=== PATIENT | female | born 1990 | race Two or more races ===

== ENCOUNTER 2020-02-23 23:06 | Emergency (ER) | payer MEDICAID, OTHER ==
[~2020-02-23] VITALS: Ht 154.9 cm; Wt 70.3 kg
[2020-02-23 23:45] LABS: Basophils # (auto) 0.1 10 ^3/uL (0-0.2); Basophils % (auto) 0.7 % (0.0-2.0); Eosinophils # (auto) 0.2 10 ^3/uL (0-0.8); Eosinophils % (auto) 2.5 % (0.0-7.0); Hemoglobin 14.5 g/dL (12.2-16.2); Lymphocytes # (auto) 3.3 10 ^3/uL (0.4-5.4); Lymphocytes % (auto) 38.4 % (10.0-50.0); Mean Corpuscular Hemoglobin 30.4 pg (28.0-32.0); Mean Corpuscular Hgb Conc. 34.5 g/dL (32.0-36.0); Monocytes # (auto) 0.5 10 ^3/uL (0-1.3); Monocytes % (auto) 5.9 % (0.0-12.0); Neutrophils # (auto) 4.6 10 ^3/uL (1.6-8.6); Neutrophils % (auto) 52.5 % (37.0-80.0); Nucleated Red Blood Cells % 0.1 %; Platelet Count (auto) 275 10^3/uL (140-450); Red Blood Cells 4.77 10^6/uL (4.0-5.20); Red Cell Distribution Width 12.9 % (11.8-14.3); White Blood Cell 8.7 10^3/uL (4.4-10.8)
[2020-02-24 00:02] LABS: Albumin 3.4 g/dL (3.4-5.0); BUN/Creatinine Ratio 26.6; Calcium 8.9 mg/dL (8.5-10.1); Potassium 3.9 mmol/L (3.5-5.1)
[2020-02-24 00:05] LABS: Bilirubin, Total 0.3 mg/dL (0.2-1.0); Total Protein 7.6 g/dL (6.4-8.2)
[2020-02-24 00:37] LABS: Urine Bacteria NONE SEEN /hpf (None Seen); Urine Blood 2+ /uL (Negative); Urine Specific Gravity 1.033 (1.001-1.035); Urine WBC 1 /hpf (0 - 5)
[2020-02-24 01:09] VITALS: BP 110/58
== END 2020-02-24 02:36 | disposition home or self-care (01) ==
LOC: ER 23:06
DX: O20.8 Other hemorrhage in early pregnancy (principal); N94.19 Other specified dyspareunia; Z3A.11 11 weeks gestation of pregnancy
CPT/HCPCS: 36415; 76801; 80053; 81001; 84702; 85025

== ENCOUNTER 2020-07-17 15:40 | Inpatient (IN) | payer MEDICAID ==
[~2020-07-17] VITALS: Ht 30.5 cm; Wt 0.5 kg
[2020-07-17] MEDS: ACCU-CHEK COMFORT CURVE STRIP VI SCH (02:00)
[2020-07-17] MEDS ORDERED: METOCLOPRAMIDE HCL 5MG/ml INJ 2ml VIAL IV ONE (16:01)
[2020-07-17] MEDS ORDERED: ePHEDrine SULFATE 50 MG/ML AMP IV ONE (16:01)
[2020-07-17] MEDS ORDERED: MIDAZOLAM HCL 1MG/1ML-2 ML VIAL ONE (16:18)
[2020-07-17] MEDS ORDERED: fentaNYL CITRATE 100 MCG/2 ML VL ONE (16:18)
[2020-07-17] MEDS ORDERED: LACT. RINGERS/OXYTOCIN 20UNITS 1,000 ML IV ONE (16:50)
[2020-07-17] MEDS ORDERED: ceFAZolin 1GM VL ONE (16:53)
[2020-07-17] MEDS ORDERED: ONDANSETRON HCL 4 MG/2 ML VIAL IV PRN ×2 (17:00→17:30)
[2020-07-17] MEDS ORDERED: ePHEDrine SULFATE 50 MG/ML AMP IV PRN ×2 (17:00→17:30)
[2020-07-17] MEDS ORDERED: oxyTOCIN 10 UNIT/ML 10ML VIAL ONE (17:12)
[2020-07-17] MEDS ORDERED: ACCU-CHEK COMFORT CURVE STRIP VI ONE (17:30)
[2020-07-17] MEDS ORDERED: MIDAZOLAM HCL 1MG/1ML-2 ML VIAL IV PRN (17:30)
[2020-07-17] MEDS ORDERED: KETOROLAC TROMETH 30 MG/ML 1ML VIAL IV ONE (17:30)
[2020-07-17] MEDS ORDERED: HYDROmorphone HCL 2 MG/ML VL IV PRN (17:30)
[2020-07-17] MEDS ORDERED: fentaNYL CITRATE 100 MCG/2 ML VL IV PRN (17:30)
[2020-07-17] MEDS ORDERED: MORPHINE SULFATE 4 MG/ML SYR/VIAL IV PRN (17:30)
[2020-07-17] MEDS ORDERED: LABETALOL HCL 5 MG/ML 4ML SYRINGE IV PRN (17:30)
[2020-07-17] MEDS ORDERED: LACTATED RINGER'S 1,000 ML IV SCH (17:51)
[2020-07-17] MEDS ORDERED: LACT. RINGERS/OXYTOCIN 20UNITS 1,000 ML IV SCH (17:51)
[2020-07-17 18:30] VITALS: BP 127/75
--- NOTE | 2020-07-17 18:30 | NUR ---
Post Op for LDRP: Received patient from PACU via bed to room LDRP-7A. Patient A/A/Ox4, abdominal binder and bilateral SCD's are in place, IV fluids placed on pump and infusing per order, incisional site dressing clean/dry/intact and Verma Catheter to gravity draining clear yellow urine. Incentive Spirometer at bedside and instruction on proper use with return demonstration done by patient.
--- NOTE | 2020-07-17 19:00 | NUR ---
CALLED REGARDING PT INSULIN DEPENDENT FOR 8 YEARS AND TAKES 35UNITS LANTUS IN THE MORNING AND HUMALOG 4XDAY. ORDERS RECEIVED TO PERFORM ACCUCHECK Q4H.
[2020-07-17 19:02] LABS: Basophils # (auto) 0 10 ^3/uL (0-0.2); Basophils % (auto) 0.4 % (0.0-2.0); Eosinophils # (auto) 0.1 10 ^3/uL (0-0.8); Eosinophils % (auto) 0.5 % (0.0-7.0); Hemoglobin 12.5 g/dL (12.2-16.2); Lymphocytes # (auto) 1.6 10 ^3/uL (0.4-5.4); Lymphocytes % (auto) 14.9 % (10.0-50.0); Mean Corpuscular Hemoglobin 30.7 pg (28.0-32.0); Mean Corpuscular Volume 90.3 fL (80.0-100.0); Monocytes # (auto) 0.4 10 ^3/uL (0-1.3); Monocytes % (auto) 3.9 % (0.0-12.0); Neutrophils # (auto) 8.7 10 ^3/uL (1.6-8.6); Neutrophils % (auto) 80.3 % (37.0-80.0); Platelet Count (auto) 207 10^3/uL (140-450); Red Blood Cells 4.09 10^6/uL (4.0-5.20); Red Cell Distribution Width 12.6 % (11.8-14.3); White Blood Cell 10.8 10^3/uL (4.4-10.8)
[2020-07-17 19:16] LABS: Albumin 2.4 g/dL (3.4-5.0); Calcium 8.2 mg/dL (8.5-10.1); Potassium 3.7 mmol/L (3.5-5.1)
[2020-07-17 19:18] LABS: INR 0.92 (0.9-1.15); Partial Thromboplastin Time 28.8 sec (23.0-31.2)
[2020-07-17 19:20] LABS: BUN/Creatinine Ratio 9.8; Bilirubin, Total 0.5 mg/dL (0.2-1.0); Total Protein 6.3 g/dL (6.4-8.2); Uric Acid 3.2 mg/dL (2.6-6.0)
[2020-07-17] MEDS ORDERED: INSLISPI SC (19:42)
[2020-07-17] MEDS ORDERED: INSU1INJ19 SC (19:42)
[2020-07-17] MEDS ORDERED: PREN-96 PO (19:42)
[2020-07-17 20:05] VITALS: BP 114/71
[2020-07-17 21:02] VITALS: BP 105/61
[2020-07-17] MEDS ORDERED: ACETAMINOPHEN IV 1000 MG/100ML (10MG/ML) IV PRN ×2 (21:15→21:45)
[2020-07-17 22:08] VITALS: BP 102/65
[2020-07-17 23:00] VITALS: BP 106/62
[2020-07-17 23:46] LABS: Basophils # (auto) 0 10 ^3/uL (0-0.2); Basophils % (auto) 0.4 % (0.0-2.0); Eosinophils # (auto) 0 10 ^3/uL (0-0.8); Eosinophils % (auto) 0.2 % (0.0-7.0); Hematocrit 33.4 % (36.0-46.0); Hemoglobin 11.8 g/dL (12.2-16.2); Lymphocytes # (auto) 1.6 10 ^3/uL (0.4-5.4); Lymphocytes % (auto) 17.9 % (10.0-50.0); Mean Corpuscular Hemoglobin 31.7 pg (28.0-32.0); Mean Corpuscular Hgb Conc. 35.4 g/dL (32.0-36.0); Mean Corpuscular Volume 89.5 fL (80.0-100.0); Monocytes # (auto) 0.5 10 ^3/uL (0-1.3); Monocytes % (auto) 5.6 % (0.0-12.0); Neutrophils # (auto) 6.9 10 ^3/uL (1.6-8.6); Neutrophils % (auto) 75.9 % (37.0-80.0); Nucleated Red Blood Cells % 0.1 %; Platelet Count (auto) 183 10^3/uL (140-450); Red Blood Cells 3.73 10^6/uL (4.0-5.20); Red Cell Distribution Width 12.5 % (11.8-14.3); White Blood Cell 9.1 10^3/uL (4.4-10.8)
[2020-07-17 23:49] LABS: Urine Bacteria NONE SEEN /hpf (None Seen); Urine Blood Negative /uL (Negative); Urine Mucus FEW (None Seen); Urine Specific Gravity 1.012 (1.001-1.035); Urine WBC 1 /hpf (0 - 5)
[2020-07-17 23:50] VITALS: BP 106/61
[2020-07-17 23:56] LABS: Alcohol, Urine < 3.0 mg/dL (0-10); Amphetamine Screen, Urine NEGATIVE (NEGATIVE); Barbiturate Scree,Urine NEGATIVE (NEGATIVE); Benzodiazephine Screen, Urine POSITIVE (NEGATIVE); Cannabinoid Screen, Urine NEGATIVE (NEGATIVE); Cocaine Screen, Urine NEGATIVE (NEGATIVE); Opiate Scree,Urine NEGATIVE (NEGATIVE)
[2020-07-18] VITALS (7 sets, daily range): BP systolic 105–118; BP diastolic 53–75
[2020-07-18 00:04] LABS: Phencyclidine Screen, Urine NEGATIVE (NEGATIVE)
[2020-07-18] MEDS: MORPHINE SULFATE 4 MG/ML SYR/VIAL IV PRN ×2 (00:41→05:43)
[2020-07-18] MEDS: ceFAZolin 1GM/50ML 50 ML IV SCH ×3 (00:42→09:43)
[2020-07-18] MEDS: ACCU-CHEK COMFORT CURVE STRIP VI SCH ×4 (02:00→14:00)
--- NOTE | 2020-07-18 02:30 | NUR ---
Bruno CNM notified of critical glucose level. Orders received for 100ml D5LR, change diet to clear liquid and give patient apple juice. Will follow orders.
[2020-07-18] MEDS: D5W/LACTATED RINGERS 1,000 ML IV SCH ×2 (02:46→12:30)
--- NOTE | 2020-07-18 02:50 | NUR ---
Pt c/o 05/24 pain at incision site. Orders received from Bruno PANTOJA for 1mg Dilauded IV once.
[2020-07-18] MEDS ORDERED: HYDROmorphone HCL 2 MG/ML VL IV ONE (03:00)
[2020-07-18] MEDS ORDERED: HYDROcodone-ACET 5/325MG TAB PO PRN (07:15)
--- NOTE | 2020-07-18 07:15 | NUR ---
Ly catheter dc'd Order to discontinue ly catheter. Ly dc'd with clean technique following deflation of balloon. Patient tolerated well with no complaints of pain. Continue care.
[2020-07-18 07:28] LABS: Basophils # (auto) 0.1 10 ^3/uL (0-0.2); Basophils % (auto) 0.5 % (0.0-2.0); Eosinophils # (auto) 0.1 10 ^3/uL (0-0.8); Eosinophils % (auto) 0.8 % (0.0-7.0); Hemoglobin 13.2 g/dL (12.2-16.2); Lymphocytes # (auto) 2.2 10 ^3/uL (0.4-5.4); Lymphocytes % (auto) 19.5 % (10.0-50.0); Mean Corpuscular Hemoglobin 31.4 pg (28.0-32.0); Mean Corpuscular Hgb Conc. 34.7 g/dL (32.0-36.0); Mean Corpuscular Volume 90.4 fL (80.0-100.0); Monocytes # (auto) 0.6 10 ^3/uL (0-1.3); Monocytes % (auto) 5.3 % (0.0-12.0); Neutrophils # (auto) 8.2 10 ^3/uL (1.6-8.6); Neutrophils % (auto) 73.9 % (37.0-80.0); Nucleated Red Blood Cells % 0.1 %; Platelet Count (auto) 206 10^3/uL (140-450); Red Blood Cells 4.21 10^6/uL (4.0-5.20); Red Cell Distribution Width 12.7 % (11.8-14.3)
[2020-07-18] MEDS: IBUPROFEN 800 MG TAB PO PRN ×2 (08:14→17:19)
[2020-07-18] MEDS: HYDROcodone-ACET 5/325MG TAB PO PRN ×3 (09:42→21:44)
[2020-07-18] MEDS: DOCUSATE SOD 100 MG CAP PO SCH ×2 (09:43→21:45)
[2020-07-18] MEDS: SIMETHICONE 80 MG CHEWABLE TABLET PO SCH ×3 (12:00→21:46)
[2020-07-18] MEDS ORDERED: ceFAZolin 1GM/50ML 50 ML IV ONE (17:15)
[2020-07-18] MEDS ORDERED: INSULIN LISPRO (HUMAN) 100 UNITS/ML ML SC ONE (19:15)
--- NOTE | 2020-07-18 19:30 | NUR ---
call made to OB doctor ribbon blockmaker regarding patients blood sugar of 252. pt is a type 1 insulin diabetic. pt takes Lantus in the mornings and Humalog 10 units before meals. orders received to give Humalog 10 units now.
--- NOTE | 2020-07-18 20:00 | NUR ---
IV removal IV DC'd with clean technique, catheter fully intact. Pressure dressing applied to site. Patient tolerated well. NOTE:
--- NOTE | 2020-07-18 23:07 | NUR ---
ORANGE JUICE AND CRACKERS GIVEN TO PATIENT.
[2020-07-19] MEDS: IBUPROFEN 800 MG TAB PO PRN ×3 (02:51→21:40)
--- NOTE | 2020-07-19 02:59 | NUR ---
call made to doctor lavon regarding pts blood sugar of 241. pts blood sugar was 46 and 45 and orange juice and crackers given repeat draw at 2300,71 thirty mins after. orders received to check blood sugar before and after breakfast.
[2020-07-19 03:00] VITALS: BP 101/70
[2020-07-19] MEDS: HYDROcodone-ACET 5/325MG TAB PO PRN ×3 (04:00→17:30)
[2020-07-19 04:06] LABS: Rubella Antibodies, IgG 2.69 index (Immune >0.99)
[2020-07-19 05:06] LABS: RPR Non Reactive (Non Reactive)
[2020-07-19] MEDS: SIMETHICONE 80 MG CHEWABLE TABLET PO SCH ×4 (06:00→21:40)
--- NOTE | 2020-07-19 06:40 | NUR ---
OLEKSANDR Celaya at beside, discussed pt home regimen for taking insulin at home for her DM that she has been taking for years. [place] insulin dependent, orders received to continue Lantus 30 Units every morning and Humalog 10 Units TID before meals.
[2020-07-19 07:00] VITALS: BP 116/70
[2020-07-19] MEDS ORDERED: INSULIN LANTUS (GLARGINE) 1 /0.01ml (100units/ml) SC SCH ×2 (07:00→07:30)
[2020-07-19] MEDS ORDERED: INSULIN LISPRO (HUMAN) 100 UNITS/ML ML SC ONE (07:00)
[2020-07-19] MEDS ORDERED: INSULIN LISPRO (HUMAN) 100 UNITS/ML ML SC SCH (07:30)
--- NOTE | 2020-07-19 10:40 | NUR ---
Dr Ramirez called for internal med consult. SBAR given.
[2020-07-19 11:00] VITALS: BP 116/70
--- NOTE | 2020-07-19 11:00 | NUR ---
Dr Ramirez at bedside for evaluation.
[2020-07-19] MEDS ORDERED: INSULIN LANTUS (GLARGINE) 1 /0.01ml (100units/ml) SC ONE (11:30)
[2020-07-19] MEDS: DOCUSATE SOD 100 MG CAP PO SCH ×2 (11:49→21:39)
--- NOTE | 2020-07-19 11:55 | NUR ---
1147 Dr Ramirez called, blood sugar 46, orders received to feed patient lunch and recheck in 1 hour. 1155 Pt remains a/o x4. Pt given lunch and is eating
[2020-07-19 13:33] LABS: BUN/Creatinine Ratio 11.1; Potassium 3.6 mmol/L (3.5-5.1)
[2020-07-19] MEDS ORDERED: DEXTROSE (50%) 50ML SYRG IV PRN (13:45)
[2020-07-19 15:00] VITALS: BP 119/83
--- NOTE | 2020-07-19 16:22 | NUR ---
assessment Patient is a 30 year old female who is alert and oriented. Per ss consult limited care. Patient verbalizes she has care. Unable to obtain records. Syl APARICIO informed me she did receive some lab work from the [facility] office. Patient informed me she had full care at [facility] who is a teaching facility in [facility]. The main MD is Dr Vale. Patient informed me her last OB visit was on Jul 15, 2020. Patient informed me FOB is very involved. Patient informed me she has all provisions for the baby. Patient wants to breast feed baby. Patient informed me she has good family support. Syl APARICIO will continue to try and get records. Addendum: 07/19/20 at 1628 by Bria Cervantes Amended: Links added.
[2020-07-19] MEDS ORDERED: ACCU-CHEK COMFORT CURVE STRIP VI SCH (17:00)
[2020-07-19] MEDS: InsuLIN REG 1unit/0.01ml Soln (100units/ml) SC SCH ×2 (17:27→21:55)
[2020-07-19 18:32] VITALS: BP 107/71
[2020-07-19] MEDS ORDERED: TETANUS-DIPTH-ACEL PERTUSSIS 0.5ML SYR Tdap IM ONE (19:30)
[2020-07-19] MEDS ORDERED: BISACODYL 10 MG RECT SUPP PR PRN (21:30)
[2020-07-19 22:52] VITALS: BP 112/79
--- NOTE | 2020-07-20 00:45 | NUR ---
Patient requesting for blood sugar to be checked at this time. Accucheck to be performed.
[2020-07-20] MEDS: HYDROcodone-ACET 5/325MG TAB PO PRN ×2 (00:55→07:17)
[2020-07-20 02:37] VITALS: BP 115/63
[2020-07-20] MEDS: IBUPROFEN 800 MG TAB PO PRN (05:38)
[2020-07-20] MEDS: SIMETHICONE 80 MG CHEWABLE TABLET PO SCH (05:40)
--- NOTE | 2020-07-20 06:09 | NUR ---
Report received from Brian Garvin RN on stable pt. Assumed care. Addendum: 07/20/20 at 0804 by Natividad Florentino RN Amended: Links added.
[2020-07-20] MEDS ORDERED: INSULIN LANTUS (GLARGINE) 1 /0.01ml (100units/ml) SC SCH (07:00)
[2020-07-20] MEDS: InsuLIN REG 1unit/0.01ml Soln (100units/ml) SC SCH ×2 (07:00→11:30)
[2020-07-20 07:15] VITALS: BP 128/78
--- NOTE | 2020-07-20 07:15 | NUR ---
Lower abdominal incision open to air, well approximated with rafy intact. No redness, drainage, or bleeding noted. Abdominal binder in place. Incentive spirometer at bedside, pt educated on importance of use and to use at least 10xhour while awake. Pt verbalizes understanding. Addendum: 07/20/20 at 0815 by Natividad Florentino RN Amended: Links added.
[2020-07-20] MEDS: DOCUSATE SOD 100 MG CAP PO SCH (10:00)
--- NOTE | 2020-07-20 10:30 | NUR ---
[place] removed from lower abdominal incision, steri strips applied. Incision well approximated, no redness, draiange, or bleeding noted. Pt tolerated well.
--- NOTE | 2020-07-20 10:58 | NUR ---
Discharge: Discharge instructions given as ordered. Pt encouraged to follow up with [facility] MANAGER as instructed. All questions and concerns addressed. Patient verbalized understanding. Medication reconciliation completed and copy given to patient. All required/requested vaccines given and copies of vaccinations given to patient. Patient encouraged to prepare to depart unit.
[2020-07-20 11:05] VITALS: BP 114/62
--- NOTE | 2020-07-20 11:05 | NUR ---
IV removal 20G IV DC'd from Left wrist with clean sterile technique, catheter fully intact. Pressure dressing applied to site. Patient tolerated well.
--- NOTE | 2020-07-20 11:05 | NUR ---
Patient refuses an accu check prior to discharge home. Pt asymptomatic and stable.
--- NOTE | 2020-07-20 11:11 | NUR ---
Discharge: Patient ambulates with steady gait to vehicle, per request, with all personal belongings, accompanied by staff and family member. No distress noted at time of departure, no adverse changes in status since initial assessment.
== END 2020-07-20 11:11 | disposition home or self-care (01) | DRG 540 ==
LOC: LDRP 15:40
PROVIDERS: ADMIT Obstetrics & Gynecology; ATTEND Obstetrics & Gynecology
PROC: 10D00Z1 Extraction of Products of Conception, Low, Open Approach (ICD-10-PCS; principal; 2020-07-17 16:01)
DX: O24.424 Gestational diabetes mellitus in childbirth, insulin controlled (principal); O32.2XX0 Maternal care for transverse and oblique lie, not applicable or unspecified; O99.214 Obesity complicating childbirth; E66.9 Obesity, unspecified; O21.0 Mild hyperemesis gravidarum; Z20.828 Contact with and (suspected) exposure to other viral communicable diseases; O99.284 Endocrine, nutritional and metabolic diseases complicating childbirth; Z3A.33 33 weeks gestation of pregnancy; Z37.0 Single live birth; Z01.812 Encounter for preprocedural laboratory examination
CPT/HCPCS: 36415; 59025; 76815; 80048; 80053; 80307; 81001; 81002; 82948; 82962; 83036; 84112; 84550; 85025; 85610; 85730; 86592; 86703; 86762; 86850; 86900; 86901; 87340; 87426; 90471; 90715; 94760; 96360; 96361; 96365; 96366; 96372; G0378; J0131; J0690; J1815; J2250; J2590; J7060

== ENCOUNTER 2020-10-07 15:40 | Emergency (ER) | payer MEDICAID ==
[~2020-10-07] VITALS: Ht 165.1 cm; Wt 63.5 kg
[~2020-10-07 15:40] MED LIST: INSLISPI SC; INSU1INJ19 SC; PREN-96 PO
[2020-10-07 15:59] VITALS: BP 127/81
[2020-10-07] MEDS ORDERED: ONDANSETRON HCL 4 MG/2 ML VIAL IV ONE (16:15)
[2020-10-07] MEDS ORDERED: SODIUM CHLORIDE 0.9% 1,000 ML IV ONE (16:15)
[2020-10-07] MEDS ORDERED: InsuLIN REG 1unit/0.01ml Soln (100units/ml) IV ONE (16:15)
[2020-10-07 19:30] LABS: Basophils # (auto) 0 10 ^3/uL (0-0.2); Basophils % (auto) 0.4 % (0.0-2.0); Eosinophils # (auto) 0 10 ^3/uL (0-0.8); Hematocrit 40.9 % (36.0-46.0); Hemoglobin 13.8 g/dL (12.2-16.2); Lymphocytes # (auto) 1.8 10 ^3/uL (0.4-5.4); Lymphocytes % (auto) 45.9 % (10.0-50.0); Mean Corpuscular Hemoglobin 29.5 pg (28.0-32.0); Mean Corpuscular Hgb Conc. 33.7 g/dL (32.0-36.0); Mean Corpuscular Volume 87.4 fL (80.0-100.0); Monocytes # (auto) 0.3 10 ^3/uL (0-1.3); Monocytes % (auto) 6.9 % (0.0-12.0); Neutrophils # (auto) 1.8 10 ^3/uL (1.6-8.6); Neutrophils % (auto) 46.8 % (37.0-80.0); Nucleated Red Blood Cells % 0.2 %; Platelet Count (auto) 186 10^3/uL (140-450); Red Blood Cells 4.68 10^6/uL (4.0-5.20); Red Cell Distribution Width 13.8 % (11.8-14.3); White Blood Cell 3.8 10^3/uL (4.4-10.8)
[2020-10-07 20:01] LABS: Albumin 3.3 g/dL (3.4-5.0); BUN/Creatinine Ratio 12.3; Bilirubin, Total 0.3 mg/dL (0.2-1.0); CRP High Sensitivity 2.12 mg/dL (< 0.3); Potassium 3.7 mmol/L (3.5-5.1); Total Protein 7.8 g/dL (6.4-8.2)
== END 2020-10-07 22:35 | disposition home or self-care (01) ==
LOC: EDBD 15:40 → ER 16:00
DX: U07.1 COVID-19 (principal); E11.65 Type 2 diabetes mellitus with hyperglycemia; Z79.899 Other long term (current) drug therapy
CPT/HCPCS: 36415; 71045; 80053; 82010; 82728; 82962; 85025; 86141; 96361; 96374; 96375; 99284; J1815; J2405; J7030

== ENCOUNTER 2022-10-11 19:30 | Emergency (ER) | payer MEDICAID, OTHER ==
[~2022-10-11] VITALS: Ht 154.9 cm; Wt 79.5 kg
[2022-10-11] MEDS ORDERED: SODIUM CHLORIDE 0.9% 1,000 ML IVB ONE (20:30)
[2022-10-11] MEDS ORDERED: ONDANSETRON HCL 4 MG/2 ML VIAL IV ONE (20:30)
[2022-10-11] MEDS ORDERED: PANTOPRAZOLE 40 MG/10 ML VIAL INJ IV ONE (20:30)
[2022-10-11 20:56] LABS: Hematocrit 47.8 % (36.0-46.0); Hemoglobin 15.7 g/dL (12.2-16.2); Mean Corpuscular Hemoglobin 28.7 pg (28.0-32.0); Mean Corpuscular Hgb Conc. 32.8 g/dL (32.0-36.0); Mean Corpuscular Volume 87.4 fL (80.0-100.0); Red Blood Cells 5.47 10^6/uL (4.0-5.20); Red Cell Distribution Width 12.7 % (11.8-14.3); White Blood Cell 7.8 10^3/uL (4.4-10.8)
[2022-10-11 20:59] LABS: Basophils % (manual) 0 (0.0-2.0); Blast Cells 0; Eosinophils % (manual) 0 (0-7); Metamyelocytes % 0; Myelocytes % 0; Promyelocytes % 0; Reactive Lymphocytes 0
[2022-10-11 21:31] LABS: Band Neutrophils % (manual) 3; Lymphocytes % (manual) 32 (10.0-50.0); Monocytes % (manual) 6 (0-12)
[2022-10-11 21:35] LABS: Albumin 3.7 g/dL (3.4-5.0); Anion Gap 19 (5-15); Blood Urea Nitrogen 11 mg/dL (7-18); Calcium 9.5 mg/dL (8.5-10.1); Carbon Dioxide 16 mmol/L (21-32); Chloride 100 mmol/L (98-107); Glucose 267 mg/dL (74-106); Potassium 4.2 mmol/L (3.5-5.1); Sodium 135 mmol/L (136-145)
[2022-10-11 21:36] LABS: BUN/Creatinine Ratio 11.3; GFR African American 87 mL/min; GFR Non-African American 72 mL/min
[2022-10-11 21:49] LABS: Alanine Aminotransferase 37 U/L (13-56); Alkaline Phosphatase 180 U/L (45-117); Aspartate Aminotransferase 28 U/L (15-37); Bilirubin, Total 0.5 mg/dL (0.2-1.0); Total Protein 9.1 g/dL (6.4-8.2)
[2022-10-11 22:00] LABS: Urine Bacteria FEW /hpf (None Seen); Urine Blood 3+ /uL (Negative); Urine Hyaline Cast FEW /lpf (0 - 2); Urine WBC 15 /hpf (0 - 5)
[2022-10-11] MEDS ORDERED: SODIUM CHLORIDE 0.9% 1,000 ML IV ONE (22:00)
[2022-10-11] MEDS ORDERED: ONDA-144 PO (22:11)
[2022-10-11] MEDS ORDERED: CIPR-173 PO (22:11)
[2022-10-11] MEDS ORDERED: cefTRIAXone 1GM/50ML D5W 50 ML IV ONE (22:15)
[2022-10-11 22:24] LABS: Alcohol, Urine < 3.0 mg/dL (0-10); Amphetamine Screen, Urine NEGATIVE (NEGATIVE); Barbiturate Scree,Urine NEGATIVE (NEGATIVE); Benzodiazephine Screen, Urine NEGATIVE (NEGATIVE); Cannabinoid Screen, Urine POSITIVE (NEGATIVE); Cocaine Screen, Urine NEGATIVE (NEGATIVE); Opiate Scree,Urine NEGATIVE (NEGATIVE); Phencyclidine Screen, Urine NEGATIVE (NEGATIVE)
[2022-10-12 03:33] VITALS: BP 123/64
== END 2022-10-12 03:34 | disposition home or self-care (01) ==
LOC: ER 19:35
DX: E11.65 Type 2 diabetes mellitus with hyperglycemia (principal); N39.0 Urinary tract infection, site not specified; R11.2 Nausea with vomiting, unspecified; J45.909 Unspecified asthma, uncomplicated; Z79.4 Long term (current) use of insulin; Z79.899 Other long term (current) drug therapy
CPT/HCPCS: 36415; 80053; 80307; 81001; 81025; 82010; 85007; 85027; 96365; 96375; 99284; C9113; J0696; J2405; J7030